=== PATIENT | male | born 1980 | race Caucasian/White ===

== ENCOUNTER 2017-03-25 08:30 | Outpatient (CLI) | payer OTHER ==
[2017-03-25 18:05] LABS: BASOPHILS # (AUTO) 0.1 10^3/uL (0.0-0.1); BASOPHILS % (AUTO) 0.6 %; EOSINOPHILS # (AUTO) 0.1 10^3/uL (0.0-0.7); EOSINOPHILS % (AUTO) 0.8 %; HCT - HEMATOCRIT 42.4 % (42.0-52.0); HGB - HEMOGLOBIN 14.3 g/dL (14.0-18.0); LYMPHOCYTES # (AUTO) 3.2 10^3/uL (1.5-3.5); MEAN CORPUSCULAR HEMOGLOBIN 29.7 pg (27.0-31.0); MEAN CORPUSCULAR HGB CONC 33.7 g/dL (32.0-36.0); MEAN CORPUSCULAR VOLUME 88.1 fL (80.0-94.0); MONOCYTES # (AUTO) 0.6 10^3/uL (0.0-1.0); MONOCYTES % (AUTO) 6.4 %; NEUTROPHILS % (AUTO) 56.2 %; RED BLOOD COUNT 4.81 10^6/uL (4.70-6.10); RED CELL DISTRIBUTION WIDTH 14.9 % (12.0-15.0); UNCORRECTED WHITE BLOOD COUNT 8.9 x10^3/uL; WHITE BLOOD COUNT 8.9 x10^3/uL (4.8-10.8)
[2017-03-25 18:19] LABS: ALBUMIN/GLOBULIN RATIO 2.1 (1.0-2.2); BILIRUBIN,TOTAL 1.3 mg/dL (0.2-1.0); BUN - BLOOD UREA NITROGEN 17 mg/dL (6-20); CALCIUM 9.4 mg/dL (8.5-10.3); CARBON DIOXIDE - CO2 24 mmol/L (21-32); CHLORIDE 105 mmol/L (101-111); CREATININE 1.1 mg/dL (0.6-1.2); GFR - MDRD 75 (>89); GLUCOSE 106 mg/dL (70-100); POTASSIUM 3.5 mmol/L (3.5-5.0); SODIUM 138 mmol/L (135-145); TOTAL PROTEIN 6.5 g/dL (6.7-8.2)
== END 2017-03-25 08:31 | disposition home or self-care (01) ==
LOC: LAB.F 08:30
PROVIDERS: ATTEND Internal Medicine
DX: F41.1 Generalized anxiety disorder (principal)
CPT/HCPCS: 36415; 80053; 84443; 85025

== ENCOUNTER 2018-02-07 08:27 | Outpatient (CLI) | payer OTHER ==
[2018-02-07 11:50] LABS: BASOPHILS % (AUTO) 0.6 %; EOSINOPHILS # (AUTO) 0.1 10^3/uL (0.0-0.7); EOSINOPHILS % (AUTO) 1.1 %; HGB - HEMOGLOBIN 14.9 g/dL (14.0-18.0); MEAN CORPUSCULAR HEMOGLOBIN 30.6 pg (27.0-31.0); MEAN CORPUSCULAR HGB CONC 33.6 g/dL (32.0-36.0); MEAN CORPUSCULAR VOLUME 91.2 fL (80.0-94.0); MEAN PLATELET VOLUME 9.9 fL (7.4-11.4); MONOCYTES # (AUTO) 0.4 10^3/uL (0.0-1.0); MONOCYTES % (AUTO) 5.8 %; NEUTROPHILS # (AUTO) 4.1 10^3/uL (1.5-6.6); NEUTROPHILS % (AUTO) 53.5 %; PLT - PLATELET COUNT 180 10^3/uL (130-450); RED BLOOD COUNT 4.86 10^6/uL (4.70-6.10); RED CELL DISTRIBUTION WIDTH 14.1 % (12.0-15.0); WHITE BLOOD COUNT 7.7 x10^3/uL (4.8-10.8)
[2018-02-07 12:13] LABS: ALBUMIN 4.1 g/dL (3.2-5.5); ALBUMIN/GLOBULIN RATIO 1.5 (1.0-2.2); BILIRUBIN,TOTAL 0.9 mg/dL (0.2-1.0); CALCIUM 9.3 mg/dL (8.5-10.3); TOTAL PROTEIN 6.8 g/dL (6.7-8.2)
== END 2018-02-07 08:28 | disposition home or self-care (01) ==
LOC: LAB.F 08:27
PROVIDERS: ATTEND Physician Assistant Medical
DX: Z00.00 Encounter for general adult medical examination without abnormal findings (principal); Z51.81 Encounter for therapeutic drug level monitoring; Z79.899 Other long term (current) drug therapy; E55.9 Vitamin D deficiency, unspecified; R61 Generalized hyperhidrosis; R68.82 Decreased libido
CPT/HCPCS: 36415; 80053; 81599; 82306; 84402; 84403; 85025

== ENCOUNTER 2020-05-21 20:03 | Outpatient (CLI) | payer MEDICAID ==
--- NOTE | 2020-05-22 15:57 | XRAY Report ---
PROCEDURE: Wrist 3 View LT INDICATIONS: PAIN IN LEFT WRIST TECHNIQUE: 3 views of the wrist were acquired. COMPARISON: None FINDINGS: Bones: No fractures or dislocations. No suspicious bony lesions. Moderate radiocarpal and distal ra dioulnar joint osteoarthritis. Mild triscaphe joint osteoarthritis. Soft tissues: No suspicious soft tissue calcifications. IMPRESSION: Osteoarthritis. Reviewed by: Michelle Lugo MD, PhD on 05/22/2020 3:56 PM PDT Approved by: Michelle Lugo MD, PhD on 05/22/2020 3:56 PM PDT Station ID: [id number]
== END 2020-05-21 20:04 | disposition home or self-care (01) ==
LOC: DI 20:03
PROVIDERS: ATTEND Physician Assistant
DX: M19.032 Primary osteoarthritis, left wrist (principal)

== ENCOUNTER 2023-10-17 15:53 | Emergency (ER) | payer MEDICAID, OTHER ==
--- NOTE | 2023-10-17 16:31 | ED Physician Documentation ---
PD HPI Fall - Stated complaint Stated Complaint: FALL/RIB PX - Chief complaint Chief Complaint: General - History obtained from History obtained from: Patient - History of Present Illness Mechanism of injury: Slipped, Lost balance Fall distance: Standing position (he was up on truck bed and lost balance, fell down about 4 feet onto edge of a forklift ina, striking left lateral ribs area. Pain locally there. Did not strike head. No neck nor abd pain.) Where injury occurred: Work Timing - onset: How many hours ago (1), Today Injury(ies) location: Chest (left lateral) Quality of pain: Pain, Aching, Sharp Associated symptoms: No: LOC, AMS, Weakness, Paresthesias Worsens with: Movement, Palpation, Other (breathing) Similar symptoms before: Has not had sx before Review of Systems Constitutional: denies: Fever, Chills Nose: denies: Rhinorrhea / runny nose, Congestion Throat: denies: Sore throat Respiratory: denies: Cough GI: denies: Abdominal Pain, Abdominal Swelling Musculoskeletal: denies: Extremity pain Neurologic: denies: Focal weakness, Numbness, Altered mental status, Headache, Head injury PD PAST MEDICAL HISTORY - Past Medical History Past Medical History: No Psych: Anxiety - Past Surgical History Past Surgical History: Yes General: Other - Present Medications Home Medications: Ambulatory Orders Medication Instructions Recorded Confirmed Lidocaine Patch 5% [Lidoderm Patch] 1 patch TOP DAILY PRN #10 patch 10/17/23 Meloxicam [Mobic] 7.5 mg PO BID 10 Days #20 tablet 10/17/23 Oxycodone HCl/Acetaminophen 1 each PO Q6H PRN #25 tablet 10/17/23 [Percocet 7.5-325 mg Tablet] Sertraline HCl 100 mg PO DAILY 10/17/23 10/17/23 methocarbamoL [Robaxin] 500 mg PO Q6H PRN #30 tablet 10/17/23 - Allergies Allergies/Adverse Reactions: Allergies Allergy/AdvReac Type Severity Reaction Status Date / Time No Known Drug Allergies Allergy Verified 10/17/23 16:06 - Social History Does the pt smoke?: No Smoking Status: Never smoker PD ED PE NORMAL - Vitals Vital signs reviewed: Yes - General General: Alert and oriented X 3, Well developed/nourished, Other (appars moderately distressed with chest pain at area of injury. ) - HEENT HEENT: Atraumatic - Neck Neck: Supple, no meningeal sign, No bony TTP - Cardiac Cardiac: RRR, No murmur - Respiratory Respiratory: Clear bilaterally, Other (left lateral chest wall pain around ribs 7-8 without crepitance. ) - Abdomen Abdomen: Soft, Non tender, Other - Back Back: No spinal TTP - Derm Derm: Normal color, Warm and dry Results - Vitals Vitals: Vital Signs - 24 hr 10/17/23 10/17/23 16:03 18:04 Temperature 36.6 C 36.5 C Heart Rate 67 64 Respiratory 16 16 Rate Blood Pressure 117/72 116/72 O2 Saturation 96 98 - Rads (name of study) ribs with chest Relevant Findings:: Prelim report reviewed, EMP independent interpretation of test (no PTX nor effusion. Ribs 7 and 8 with minimally displaced fractures. ) PD Medical Decision Making - ED course Complexity details: reviewed results, re-evaluated patient (he is in visible pain with movement and position and breathing. Given IM meds here to initial better pain control. Toradol and Dilaudid IM with moderate improvement. ), considered differential (fall at work with landing striking left ribs/chest on edge of forklift ina. Local injury there. No head/neck/abd pain. CXR shoowing 2 rib fractures without lung injury. I feel xray sufficient and did not need CT. ), d/w patient Social Determinants of Health: he will obviously need off work for at least few days then well modified work retrictions for at least 7-10 days. Increase activity as tolerateed. Departure - Departure Disposition: 01 Home, Self Care Clinical Impression: Work related injury Accidental fall Qualifiers: Encounter type: initial encounter Qualified Code(s): W19.XXXA - Unspecified fall, initial encounter Rib fractures Qualifiers: Encounter type: initial encounter Fracture type: closed Laterality: left Qualified Code(s): S22.42XA - Multiple fractures of ribs, left side, initial e ncounter for closed fracture Condition: Stable Record reviewed to determine appropriate education?: Yes Instructions: ED Fx Rib Follow-Up: [facility] [Provider Group] Prescriptions: Lidocaine Patch 5% [Lidoderm Patch] 1 patch TOP DAILY PRN #10 patch PRN Reason: pain Meloxicam [Mobic] 7.5 mg PO BID 10 Days #20 tablet Oxycodone HCl/Acetaminophen [Percocet 7.5-325 mg Tablet] 1 each PO Q6H PRN #25 tablet PRN Reason: Pain methocarbamoL [Robaxin] 500 mg PO Q6H PRN #30 tablet PRN Reason: Spasms Comments: Your x-ray shows 2 broken ribs on the left side numbers 7 and 8. No signs of injury to the lung nor punctured lung. This will obviously hurt with movement and breathing and often times position. Find the most comfortable position for example for sleeping and sitting. Often this can be somewhat inclined like a recliner rather than flat in bed but what ever is most comfortable. A combination of anti-inflammatories and muscle relaxant as well as Tylenol is useful for this. You can try lidocaine patches over the area that is hurting as well and can often help in combination with others. Tylenol 500 650 mg 4 times daily for pain and add oxycodone every 4-6 hours if needed for worst pain. The worst pain should be mainly the first couple of days with the initial inflammation and spasms and such. There will be a notable decrease in pain at around a week to week and a half when the initial bone healing allows for the ribs to "stick together" better so there is less movement clicking and popping. Subsequently then its about a 4 to 6-week timeframe for them to fully heal to the point of of no pain with movement and activity. After the first week to week and a half, activity would be as tolerated. Before that try to avoid heavy lifting or vigorous activity. I sent your prescriptions to the [facility] in [place]. I am prescribing a short course of narcotic pain medication for you. These are potentially dangerous and addictive medications that should be used carefully. These medications may constipate you. Take an txcs-fmz-lfaziki stool softener such as docusate twice daily with plenty of water while taking these medications. If you go 24 hours without a bowel movement, take qnzm-mpk-wlpcqpo MiraLAX, per package instructions. Do not drink or drive while taking these medications. If you received narcotic or sedating medications while in the emergency department do not drive for 24 hours. Store this medication in a safe, secure place and out of reach of children. It is a violation of federal law to give or sell this medication to another person or to use in a manner other than prescribed. The ED will not refill narcotic prescriptions, including prescriptions lost or stolen. You can dispose of unwanted medications at the [facility]'s office or at several pharmacies such as [email or web address]. Forms: PCP List, Activity restrictions Discharge Date/Time: 10/17/23 18:04
--- NOTE | 2023-10-17 16:55 | XRAY Report ---
PROCEDURE: Ribs w/PA Chest 3+V LT INDICATIONS: fall, rib pain TECHNIQUE: 2 views of the ribs were acquired, along with a single view chest. COMPARISON: None. FINDINGS: Surgical changes and devices: Left scapula postsurgical changes.. Bones and chest wall: Mildly displaced fractures of the left lateral seventh and eighth ribs. No reed spicious bony lesions. Overlying soft tissues appear unremarkable. Lungs and pleura: No pleural effusions or pneumothorax. Lungs appear clear. Mediastinum: Mediastinal contours appear normal. Heart size is normal. IMPRESSION: Mildly displaced fractures of the left lateral seventh and eighth ribs. Reviewed by: Franco Arce MD on 10/17/2023 4:54 PM PST Approved by: Franco Arce MD on 10/17/2023 4:54 PM PST Station ID: [id number]
[2023-10-17] MEDS: ACETAMINOPHEN 325 MG TABLET PO STA (17:32)
[2023-10-17] MEDS: methocarbamoL 500 MG TABLET PO STA (17:32)
[2023-10-17] MEDS: KETOROLAC 30 MG/ML VIAL IM STA (17:35)
[2023-10-17] MEDS: HYDROmorphone 1 MG/ML CARPUJECT IM STA (17:37)
[2023-10-17] MEDS: oxyCODONE/ACET 5/325 Prepack 4 PO STA (17:40)
[2023-10-17 18:13] VITALS: BP 116/72; O2SAT 98
== END 2023-10-17 18:04 | disposition home or self-care (01) ==
LOC: ED 15:53
DX: S22.42XA Multiple fractures of ribs, left side, initial encounter for closed fracture (principal); W17.89XA Other fall from one level to another, initial encounter; Y92.89 Other specified places as the place of occurrence of the external cause; Y99.0 Civilian activity done for income or pay
CPT/HCPCS: 71101; 96372; 99283; 99284; A9270; J1170; 1040M

== ENCOUNTER 2023-10-19 20:55 | Emergency (ER) | payer OTHER ==
[2023-10-19] MEDS: IPRATROPIUM/ALBUTEROL 3 ML NEB INH STA (22:20)
--- NOTE | 2023-10-19 22:20 | XRAY Report ---
PROCEDURE: Chest 2V INDICATIONS: known rib fracture, increase pain TECHNIQUE: 2 views of the chest were acquired. COMPARISON: 10/17/2023. FINDINGS: Surgical changes and devices: Stable postsurgical changes of the left scapula. Lungs and pleura: Lung volumes are diminished on the left. Streaky left basilar opacities likely rep resenting atelectasis. No pneumothorax. No substantial pleural effusion. Right lung appears clear. Mediastinum: Mediastinal contours appear normal. Heart size is normal. Bones and chest wall: No suspicious bony lesions. Overlying soft tissues appear unremarkable. No lateral left seventh and eighth rib fractures not well visualized on this exam. IMPRESSION: Mildly decreased left lung volumes with streaky left basilar opacities favored to represent atelectas is. No pneumothorax seen. Findings may be related to known lateral left seventh and eighth rib fractu res which are not well visualized on this examination. Reviewed by: Buster Murray MD on 10/19/2023 10:18 PM PST Approved by: Buster Murray MD on 10/19/2023 10:18 PM PST Station ID: [id number]
--- NOTE | 2023-10-19 22:41 | ED Physician Documentation ---
History of Present Illness - Stated complaint Stated Complaint: SOA - Chief complaint Chief Complaint: Resp - History obtained from History obtained from: Patient, Family - History of Present Illness Timing: How many days ago (3) Pain level max: 8 Pain level now: 7 - Additonal information Additional information: 43-year-old male was seen here 2 days ago and diagnosed with rib fractures, seventh and eighth ribs at the left side. He states that he has been coughing for the past few days and had increased pain tonight. Has been taking oxycodone 1 tab every 6 hours at home. Using a lidocaine patch as well. He does vape, does not smoke. No fevers. No chills. Worse with movement, better with rest. Also complains of constipation. He also states he has rhinorrhea and congestion. He is not using the incentive spirometer. Review of Systems Constitutional: denies: Fever, Chills Nose: denies: Rhinorrhea / runny nose, Congestion Respiratory: denies: Cough GI: denies: Abdominal Pain, Nausea, Vomiting, Diarrhea Skin: denies: Rash Musculoskeletal: denies: Neck pain, Back pain Neurologic: denies: Headache PD PAST MEDICAL HISTORY - Past Medical History Past Medical History: Yes Psych: Anxiety - Past Surgical History Past Surgical History: Yes General: Other - Present Medications Home Medications: Ambulatory Orders Medication Instructions Recorded Confirmed Lidocaine Patch 5% [Lidoderm Patch] 1 patch TOP DAILY PRN #10 patch 10/17/23 Meloxicam [Mobic] 7.5 mg PO BID 10 Days #20 tablet 10/17/23 Oxycodone HCl/Acetaminophen 1 each PO Q6H PRN #25 tablet 10/17/23 [Percocet 7.5-325 mg Tablet] Sertraline HCl 100 mg PO DAILY 10/17/23 10/17/23 methocarbamoL [Robaxin] 500 mg PO Q6H PRN #30 tablet 10/17/23 Albuterol Sulf [Ventolin Hfa 1 - 2 puffs INH Q4HR PRN #1 each 10/19/23 Inhaler] Cetirizine HCl/Pseudoephedrine 1 tab PO BID PRN #20 tab 10/19/23 [Zyrtec-D ER 5 mg-120 mg Tablet] oxyCODONE [Roxicodone] 5 - 10 mg PO Q6H PRN #20 tablet 10/19/23 MDD 6 polyethylene glycoL 3350(BULK) 17 gm PO DAILY PRN #1 each 10/19/23 [Miralax] - Allergies Allergies/Adverse Reactions: Allergies Allergy/AdvReac Type Severity Reaction Status Date / Time No Known Drug Allergies Allergy Verified 10/19/23 21:24 - Social History Does the pt smoke?: No Smoking Status: Never smoker PD ED PE NORMAL - Vitals Vital signs reviewed: Yes - General General: Alert and oriented X 3, No acute distress - HEENT HEENT: Moist mucous membranes - Neck Neck: Supple, no meningeal sign - Cardiac Cardiac: RRR, Strong equal pulses - Respiratory Respiratory: No respiratory distress, Other (mild wheezing bilaterally) - Abdomen Abdomen: Soft, Non tender, Non distended - Derm Derm: Warm and dry - Neuro Neuro: Alert and oriented X 3 - Psych Psych: Normal mood, Normal affect Results - Vitals Vitals: Vital Signs - 24 hr 10/19/23 10/19/23 10/19/23 21:15 22:20 23:05 Temperature 37.0 C Heart Rate 78 88 94 Respiratory 16 24 16 Rate Blood Pressure 140/80 H 128/92 H O2 Saturation 94 96 Oxygen O2 Source Room air - Rads (name of study) cxr Relevant Findings:: Final report received, See rad report PD Medical Decision Making - ED course Complexity details: reviewed results, re-evaluated patient, considered differential, d/w patient, d/w family ED course: Patient was given a DuoNeb treatment here. Wheezing improved. Also given pseudoephedrine for the nasal congestion. Will prescribe MiraLAX for the constipation. Given a dose of Dilaudid IM and pain well-controlled. We will prescribe more oxycodone for home. We will continue supportive care and have him follow-up with his PCP. He was also given an incentive spirometer with training. Patient and family counseled regarding signs and symptoms for which I believe and urgent re-evaluation would be necessary. Patient with good understanding of and agreement to plan and is comfortable going home at this time This document was made in part using voice recognition software. While efforts are made to proofread this document, sound alike and grammatical errors may occur. No hypoxia. No respiratory distress. Departure - Departure Disposition: 01 Home, Self Care Clinical Impression: Rib fractures Qualifiers: Encounter type: initial encounter Fracture type: closed Laterality: left Qualified Code(s): S22.42XA - Multiple fractures of ribs, left side, initial encounter for closed fracture Condition: Good Instructions: ED Fx Rib Follow-Up: your,doctor in 1 week [Other] Prescriptions: Albuterol Sulf [Ventolin Hfa Inhaler] 1 - 2 puffs INH Q4HR PRN #1 each PRN Reason: Shortness Of Air/Wheezing polyethylene glycoL 3350(BULK) [Miralax] 17 gm PO DAILY PRN #1 each PRN Reason: Constipation oxyCODONE [Roxicodone] 5 - 10 mg PO Q6H PRN #20 tablet MDD 6 PRN Reason: pain Cetirizine HCl/Pseudoephedrine [Zyrtec-D ER 5 mg-120 mg Tablet] 1 tab PO BID PRN #20 tab PRN Reason: nasal congestion Comments: Your prescriptions were sent to [facility] [address] in [place]. Please follow-up with your doctor for further care. You can use the oxycodone up to 2 tabs every 6 hours as needed for pain. Use the incentive spirometer at least 10-12 times per hour. You can use the MiraLAX for constipation. The Zyrtec-D will help with your congestion and the albuterol will help with any wheezing. I am prescribing a short course of narcotic pain medication for you. These are potentially dangerous and addictive medications that should be used carefully. These medications may constipate you. Take an hxfy-snk-xoqroyt stool softener (docusate) twice daily with plenty of water while taking these medications. If you go 24 hours without a bowel movement, take pzkq-ekb-heiuhxo miralax, per package instructions. Do not drink or drive while taking these medications. If you received narcotic or sedating medications while in the emergency department, do not drive for 24 hours. Store this medication in a safe, secure place and out of reach of children. It is a violation of federal law to give or sell this medication to another person or to use in a manner other than prescribed. The ED will not refill narcotic prescriptions, including prescriptions lost or stolen. To dispose of unwanted medications: 1. [facility] at [address] in [place] has a medication drop box. They accept prescription medications (in pill form) Tuesday through Tuesday 9:00 a.m. to 5:00 p.m. 2. [facility] accepts prescription medications (in pill form only) for disposal year round. Call for more information. 3. Contact the [facility] for the next [facility] sponsored prescription drug collection event. , [phone], or [phone]; Forms: PCP List Discharge Date/Time: 10/19/23 23:22
[2023-10-19] MEDS: HYDROmorphone 1 MG/ML CARPUJECT IM STA (22:59)
[2023-10-19 23:07] VITALS: BP 128/92; O2SAT 96
[2023-10-19] MEDS: PSEUDOEPHEDRINE 30 MG TABLET PO STA (23:09)
== END 2023-10-19 23:22 | disposition home or self-care (01) ==
LOC: ED 20:55
DX: G89.11 Acute pain due to trauma (principal); R09.81 Nasal congestion; R06.2 Wheezing; K59.00 Constipation, unspecified; S22.42XA Multiple fractures of ribs, left side, initial encounter for closed fracture; X58.XXXA Exposure to other specified factors, initial encounter
CPT/HCPCS: 71046; 94640; 96372; 99284; A9270; J1170